=== PATIENT | male | born 1960 | race Caucasian/White ===

== ENCOUNTER 2019-09-12 19:13 | Emergency (ER) | payer OTHER ==
[~2019-09-12] VITALS: Ht 172.7 cm; Wt 65.8 kg
--- NOTE | 2019-09-12 20:01 | NUR ---
[email or web address], from [address], staff called 911, possible overdose on unknown substance, 2mg narcan and zofran 4mg given by ems. PT ASLEEP, SNORING, RR EVEN & UNLABORED. RESPONDS TO PAINFUL STIMULI. PLACED ON TUNGSTEN TENDER. PT SEEN & EVAL'D BY DR. PHELAN. WILL CONT TO MONITOR.
[2019-09-12 20:21] LABS: BASOPHILS # (AUTO) 0.1 /CMM (0.0-0.2); BASOPHILS % (AUTO) 1.4 % (0.0-2.0); EOSINOPHILS % (AUTO) 5.4 % (0.0-6.0); HEMATOCRIT 40 % (39-51); HEMOGLOBIN 13.5 g/dL (13.5-17.5); LYMPHOCYTES # (AUTO) 1.7 /CMM (0.8-4.8); LYMPHOCYTES % (AUTO) 30.8 % (20.0-44.0); MEAN CORPUSCULAR HGB CONC 34 g/dl (31.0-36.0); MEAN CORPUSCULAR VOLUME 83 fL (80-96); MONOCYTES # (AUTO) 0.7 /CMM (0.1-1.30); MONOCYTES % (AUTO) 12.5 % (2.0-12.0); NEUTROPHILS # (AUTO) 2.7 /CMM (1.8-8.9); NEUTROPHILS % (AUTO) 49.9 % (43.0-81.0); PLATELET COUNT (AUTO) 351 /CMM (150-450); WHITE BLOOD COUNT (AUTO) 5.5 K/uL (4.3-11.0)
[2019-09-12 20:30] LABS: ALANINE AMINOTRANSFERASE 39 U/L (12-78); ALBUMIN 3.2 g/dL (3.4-5.0); ALCOHOL, BLOOD < 3 mg/dL (0-0); ALKALINE PHOSPHATASE 69 U/L (46-116); ASPARTATE AMINOTRANSFERASE 35 U/L (15-37); BILIRUBIN,DIRECT 0.1 mg/dL (0.0-0.2); BILIRUBIN,TOTAL 0.2 mg/dL (0.2-1.0); CALCIUM, SERUM 8.9 mg/dL (8.5-10.1); CARBON DIOXIDE 26 mmol/L (21-32); CHLORIDE 106 mmol/L (98-107); CREATININE 0.9 mg/dL (0.6-1.3); GLUCOSE 131 mg/dL (74-106); POTASSIUM 3.6 mmol/L (3.5-5.1); SODIUM SERUM 139 mmol/L (136-145); TOTAL PROTEIN, SERUM 7.1 g/dL (6.4-8.2); UREA NITROGEN, BLOOD 17 mg/dL (7-18)
[2019-09-12 20:33] LABS: ACETAMINOPHEN 0 ug/ml (10-30); SALICYLATE 0.6 mg/dL (2.8-20.0)
[2019-09-12] MEDS ORDERED: NALOXONE HCL 0.4 MG/ML AMPUL IV ONE (21:30)
[2019-09-12 21:35] LABS: CHOLESTEROL 181 mg/dL (<200); HDL CHOLESTEROL 71 mg/dL (40-60); LDL 95 mg/dL (0-99); TRIGLYCERIDES 51 mg/dL (30-150)
[2019-09-12] MEDS ORDERED: NALOXONE HCL 0.4 MG/ML AMPUL ONE (21:52)
[2019-09-12] MEDS ORDERED: IV NS 0.9% 1,000 ML IV ONE (22:00)
--- NOTE | 2019-09-12 22:02 | NUR ---
MEDICATED WITH NARCAN IVP, NO EFFECT, MD AWARE. PT ASLEEP, SNORING BUT EASILY AWAKEN BY PAINFUL STIMULI & WILL GO BACK TO SLEEP. RR EVEN & UNLABORED. WILL CONT TO MONITOR.
--- NOTE | 2019-09-13 00:04 | NUR ---
PT BACK FROM CT, AAOX3, RR EVEN & UNLABORED. REFUSED TO GIVE URINE, AWARE. WILL CONT TO MONITOR.
[2019-09-13 01:31] VITALS: BP 122/78
== END 2019-09-13 01:32 | disposition home or self-care (01) ==
LOC: ER 19:17
DX: R41.82 Altered mental status, unspecified (principal); T50.901A Poisoning by unspecified drugs, medicaments and biological substances, accidental (unintentional), initial encounter; F32.9 Major depressive disorder, single episode, unspecified; R94.31 Abnormal electrocardiogram [ECG] [EKG]; F41.9 Anxiety disorder, unspecified; Y92.59 Other trade areas as the place of occurrence of the external cause
CPT/HCPCS: 36415; 70450; 71045; 71250; 72125; 74176; 80048; 80061; 80076; 80307; 80329; 84484; 85025; 85730; 93005; 96361; 96374; 99284; G0480; J2310; J7030